=== PATIENT | female | born 1950 | race Caucasian/White ===

== ENCOUNTER 2018-09-12 12:59 | Inpatient (IN) | payer MEDICARE ==
[~2018-09-12] VITALS: Ht 172.7 cm; Wt 59.9 kg
--- NOTE | 2018-09-12 12:30 | NUR ---
GPS/RN PT RECEIVED DIRECT ADMIT FROM [facility]. ADMITTING ORDERS FROM DR PONCE RECEIVED AND CARRIED OUT. HILDA ZAMORA BIOD[employer] DIVISION MANAGER NOTIFIED OF ADMISSION. PT CHECKED FOR CONTRABAND, ON FACE TO FACE ASSESSMENT PT VOICED NO SI OR HI AT THE TIME OF ASSESSMENT. .VSS. PT AMBULATORY MRSA COLLECTED. PT CROW CEE [phone] NOTIFIED OF ADMISSION. Addendum: 09/12/18 at 1643 by KAIT ALEGRIA RN ACTUAL TIME FOR THE NOTE IS 1430
[2018-09-12] MEDS ORDERED: ASPI-605 PO (13:57)
[2018-09-12] MEDS ORDERED: ALBU2.5V13 IH (13:57)
[2018-09-12] MEDS ORDERED: AMLO10TA4 PO (13:57)
[2018-09-12] MEDS ORDERED: TRAZ300T2 PO (13:57)
[2018-09-12 14:21] VITALS: BP 119/79
[2018-09-12] MEDS ORDERED: ACETAMINOPHEN 325 MG TABLET PO PRN (14:30)
[2018-09-12] MEDS ORDERED: MAG HYDROX/AL HYDROX/SIMETH 30 ML UDC PO PRN (14:30)
[2018-09-12] MEDS ORDERED: MAGNESIUM HYDROXIDE 30 ML UDC PO PRN (14:30)
[2018-09-12] MEDS ORDERED: ZOLPIDEM TARTRATE 5 MG TABLET PO PRN (14:30)
[2018-09-12] MEDS ORDERED: LORAZEPAM 0.5 MG TABLET PO PRN (14:30)
--- NOTE | 2018-09-12 15:12 | NUR ---
GPS/RN PT WAS UNWILLING TO LET THE NURSE TO UNWRAP THE DRESSING BOTH ARMS TO MAKE THE PICTURES.DRESSINGS COVERED WITH PROTECTIVE SLEEVES. NO BLEEDING NOTED . WILL REFER TO NEXT SHIFT TO FOLLOW UP. Addendum: 09/12/18 at 1627 by KAIT ALEGRIA RN PICTURES TAKEN, MRSA COLLECTED AND SENT TO THE LAB
[2018-09-12 16:00] VITALS: BP 119/79
[2018-09-12] MEDS: LamoTRIgine 25 MG TABLET PO SCH (17:05)
--- NOTE | 2018-09-12 19:30 | NUR ---
GPS RN NOTE, RECEIVED PATIENT AWAKE AND IN ROOM NO S/S OR COMPLAINTS OF PAIN AT THIS TIME. PATIENT IS DISPLAYING NO S/S OF APPARENT DISTRESS AT THIS TIME. PATIENT BREATHING IS UNLABORED WITH EQUAL RISE AND FALL OF THE CHEST. PATIENT IS ALERT AND ORIENTED X 3 ON ROOM AIR WITH A SPO2 OF 96%. PATIENT IS SELECTIVE WITH MEDICATION, DISORGANIZED, DEPRESSED, COOPERATIVE, ISOLATIVE, AND NEEDS REORIENTATION. PATIENT DENIES SUICIDE AND HOMICIDAL IDEATIONS AT THIS TIME. PATIENT ASSISTED WITH TURNING AND REPOSITIONING Q2HR AND PRN FOR COMFORT AND CIRCULATION. PATIENT HAS NO NEEDS AT THIS TIME. PATIENT EDUCATED ON THE USE OF THE CALL AVILA. PATIENT BED SIDE RAILS ARE UP X 2 FOR SAFETY, BED IS LOCKED AND LOW. WILL CONTINUE TO MONITOR AND MAINTAIN SAFETY Q15 MIN WITH THE HELP OF STAFF.
[2018-09-12 20:00] VITALS: BP 112/55
[2018-09-12] MEDS: QUETIAPINE FUMARATE 25 MG TABLET PO SCH (21:49)
[2018-09-13 07:14] LABS: ALBUMIN 3.6 g/dL (3.4-5.0); BILIRUBIN,TOTAL 0.8 mg/dL (0.2-1.0); CALCIUM, SERUM 9.6 mg/dL (8.5-10.1); CREATININE 0.8 mg/dL (0.6-1.3); POTASSIUM 3.9 mmol/L (3.5-5.1); TOTAL PROTEIN, SERUM 7.2 g/dL (6.4-8.2)
[2018-09-13 07:19] LABS: CHOLESTEROL 260 mg/dL (<200); HDL CHOLESTEROL 92 mg/dL (40-60); TRIGLYCERIDES 71 mg/dL (30-150)
[2018-09-13 07:48] LABS: LDL 146 mg/dL (0-99)
[2018-09-13 08:00] VITALS: BP 137/74
[2018-09-13] MEDS: LamoTRIgine 25 MG TABLET PO SCH ×2 (08:05→17:12)
[2018-09-13] MEDS ORDERED: NICOTINE PATCH (14MG) 14 MG PATCH.TD24 TD SCH (09:00)
--- NOTE | 2018-09-13 12:14 | NUR ---
GPS/RN PT REPORTED TO HAVE HEAD HEADACHE RELATED TO NICOTINE PATCH. PT CLAIMED THAT SHE SMOKING CIGARS BECAUSE CIGARETTES AND NICOTINE PATCHES GIVE HER THE HEADACHE. ORDERS RECEIVED TO D/C NICOTINE PATCH
[2018-09-13 16:00] VITALS: BP 113/65
[2018-09-13 21:31] VITALS: BP 120/73
[2018-09-13] MEDS: QUETIAPINE FUMARATE 25 MG TABLET PO SCH (21:38)
[2018-09-14] MEDS: LamoTRIgine 25 MG TABLET PO SCH (08:28)
[2018-09-14 09:09] VITALS: BP 100/74
--- NOTE | 2018-09-14 10:00 | NUR ---
PSYCHOSOCIAL NOTE: Psychosocial was not completed as psychiatrist stated there was no criteria to keep pt on a hold, psychiatrist Dr. Gamboa broke the hold and released pt AMA. Pt denied suicidal/homicidal ideation and denied visual/auditory hallucinations. This was pts first ever psychiatric hospitalization and pt does not have mental health history.
--- NOTE | 2018-09-14 10:38 | NUR ---
AMA DISCHARGE NOTE: Pt was discharged AMA as per Dr. Gamboa pt long snot meet criteria for a 5250 hold. Pt was picked up by friend Michelle [phone] and transported to pts home [address] [facility] [address]. Pts mood was euthymic weith congruent affect. Pt denied visual/auditory hallucinations and denied suicidal/homicidal ideation. DOMENICA provided pt with a referral to [facility] [address] [facility] [place] [facility] [address] and also provided pt with referrals to [facility] [address] [place] [address] / and was encouraged to present at 9am on Saturday September 15, 2018 for am intake. Additional resources included [facility] [address] [place] [address] and [facility] [address] [place] [address] . For smoking cessation, patient was referred to the [employer] and [employer] [id number]. Pt was encouraged to participate in a telephone meeting with [employer] [phone] on Saturday September 15, 2018. DOMENICA also provided pt with a packet with additional behavioral health and substance abuse referrals and clinics for screening.
--- NOTE | 2018-09-14 10:57 | NUR ---
GPS KNITTED CLOTH EXAMINER NOTE: PATIENT DISCHARGE AMA , HOME PICKED UP BY FRIEND, PT IN STABLE CONDITION, VSS,NO S/S DISTRESS NOTED, PT DENIES SI/HI ALL BELONGINGS RETURNED TO PT. PT REFUSED SKIN ASSESSMENT, SIGN DISCHARGE PAPERS, EXIT CARE DONE.
== END 2018-09-14 11:00 | disposition left against medical advice (07) | DRG 885 ==
LOC: ER 13:02 → GPS 13:22
PROVIDERS: ADMIT Psychiatry & Neurology Psychiatry; ATTEND Nurse Practitioner Acute Care
DX: F31.81 Bipolar II disorder (principal); F41.9 Anxiety disorder, unspecified; J44.9 Chronic obstructive pulmonary disease, unspecified; Z90.710 Acquired absence of both cervix and uterus; F10.10 Alcohol abuse, uncomplicated; I10 Essential (primary) hypertension
CPT/HCPCS: 36415; 80053-TC; 80061-TC; 87081-TC